=== PATIENT | male | born 1990 | race Caucasian/White ===

== ENCOUNTER 2021-05-10 03:50 | Emergency (ER) | payer BC, SELFPAY ==
[2021-05-10] VITALS (17 sets, daily range): BP systolic 103–140; BP diastolic 53–78; PULSE 54–95; RESP 19–26; TEMP 36.7; O2SAT 96–100
--- NOTE | ~2021-05-10 | CT_ITS ---
EXAMINATION: CT BRAIN W/O DATE: 05/10/2021 05:13 INDICATION: Seizure. TECHNIQUE: Computed tomography (CT) of the head was performed without intravenous contrast. The dose- length product was 605.33 mGy-cm. Automated exposure control and iterative reconstruction technique w ere employed. COMPARISON: No prior studies for comparison. FINDINGS: Normal brain parenchymal volume for age. Normal ac-white differentiation. No acute intrac ranial hemorrhage, infarction, mass or mass effect. No ventriculomegaly or midline shift. Midline sagittal images demonstrate a normal corpus callosum, c raniovertebral junction and sella turcica. Basilar cisterns are patent. Paranasal sinuses and mastoids are pneumatized. No depressed skull fractures. IMPRESSION: 1. No acute intracranial abnormality. Reviewed, dictated and finalized at location A. R OPERATOR
[2021-05-10 03:56] LABS: Glucose Point of Care 138 mg/dl (65-105)
--- NOTE | 2021-05-10 04:11 | ECG_ITS ---
Measurements Intervals [place] Rate: 80 P: 5 NH: 153 QRS: -30 QRSD: 117 T: 3 QT: 364 QTc: 422 Interpretive Statements SINUS RHYTHM INTRAVENTRICULAR CONDUCTION DELAY BORDERLINE R WAVE PROGRESSION, ANTERIOR LEADS MINIMAL Q WAVES- HIGH LATERAL LEADS BORDERLINE T WAVE ABNORMALITY- INFERIOR LEADS BASELINE ARTIFACT- II, III, AVR, AVF, V2-V6 BORDERLINE ECG Electronically Signed On 05-10-2021 7:29:35 DEVELOPMENT EDUCATOR by Ramirez Anton D.O.
--- NOTE | 2021-05-10 04:26 | ED.GENADULT ---
HPI - General Adult General Chief complaint: Seizure Stated complaint: possible seizure Time Seen by Provider: 05/10/21 04:10 History of Present Illness HPI narrative: Patient 30-year-old gentleman who presents the emergency department with chief complaint of seizure. Patient reports that he recently had a new onset seizure was started on Keppra and is scheduled to see neurology as an outpatient this week. The patient reports he has an MRI scheduled and an EEG scheduled. The patient's report that tonight he was sleeping with his CPAP started snoring heavily then had a seizure. The patient then went to sleep afterwards woke back up was somewhat confused and then she called EMS. Upon EMS arrival the patient was still slightly confused but is subsequently improved in his mental status and is back to normal. Patient states currently he has no complaint. Related Data Home Medications Medication Instructions Recorded Confirmed levetiracetam 500 mg PO BID 05/10/21 05/10/21 Allergies Allergy/AdvReac Type Severity Reaction Status Date / Time No Known Allergies Allergy Verified 05/10/21 03:58 Review of Systems Review of Systems: A 10 system review of systems was completed on the patient and is negative except for what is stated in the HPI. Nursing and ancillary documentation was reviewed. Exam Narrative: GENERAL: Well-appearing, well-nourished, and in no acute distress. HEAD: Normocephalic, atraumatic. EYES: PERRLA and EOMI. ENT: Nares clear, no rhinorrhea or epistaxis. Mucous membranes moist. NECK: Supple. CHEST: Clear to auscultation. No respiratory distress. HEART: Regular rate and rhythm. No murmur heard. Normal peripheral pulses. ABDOMEN: Soft, nontender, nondistended, normal active bowel sounds. EXTREMITIES: Normal range of motion. No edema. SKIN: Warm, dry, no rash. NEURO: No focal deficits. Alert and oriented x3. PSYCH: Normal mood and affect. Course Course Emergency Course: EKG sinus rhythm rate of [address] elevation or ST depression CT head showed no acute abnormalities Vital Signs Vital signs: Vital Signs Temperature 36.7 C 05/10/21 03:48 Pulse Rate 95 05/10/21 03:48 Respiratory Rate 20 05/10/21 03:48 Blood Pressure 129/75 05/10/21 03:48 Pulse Oximetry 100 05/10/21 03:48 Temperature 36.7 C 05/10/21 03:48 Pulse Rate 58 L 05/10/21 06:16 Respiratory Rate 23 H 05/10/21 06:16 Blood Pressure 127/70 05/10/21 06:16 Pulse Oximetry 97 05/10/21 06:16 Medical Decision Making Vital Signs Vital Signs: Vital Signs Temperature 36.7 C 05/10/21 03:48 Pulse Rate 95 05/10/21 03:48 Respiratory Rate 20 05/10/21 03:48 Blood Pressure 129/75 05/10/21 03:48 Pulse Oximetry 100 05/10/21 03:48 Temperature 36.7 C 05/10/21 03:48 Pulse Rate 58 L 05/10/21 06:16 Respiratory Rate 23 H 05/10/21 06:16 Blood Pressure 127/70 05/10/21 06:16 Pulse Oximetry 97 05/10/21 06:16 Lab Data Result diagrams: 05/10/21 05:52 05/10/21 05:52 Labs: Lab Results 05/10/21 05/10/21 05/10/21 Range/Units 03:54 04:18 04:18 WBC 8.8 (4.5-10.0) K/mm3 RBC 4.99 (4.6-6.20) M/mm3 Hgb 15.3 (14.0-18.0) g/dL Hct 44.2 (42.0-52.0) % MCV 88.6 (80-100) fl MCH 30.7 (26-34) pg MCHC 34.6 (32-36) g/dl RDW 12.5 (11.5-14.5) % Plt Count 266 (150-375) k/mm3 MPV 9.9 (7.4-10.4) fl Immature Gran % (Auto) 0.5 (0-0.5) % Neut % (Auto) 55.6 (45.5-73.1) % Lymph % (Auto) 33.7 (18.3-44.2) % [place] % (Auto) 6.3 (2.6-8.5) % Eos % (Auto) 3.1 (0-4.4) % Baso % (Auto) 0.8 (0.2-1.2) % Lymph # (Auto) 2.96 (0.9-3.2) K/mm3 [place] # (Auto) 0.6 (0.1-0.6) K/mm3 Eos # (Auto) 0.3 (0-0.3) K/mm3 Baso # (Auto) 0.1 (0.0-0.1) K/mm3 Abs Immat Gran (auto) 0.04 H (0.00-0.031) K/mm3 Absolute Neuts (auto) 4.9 (1.3-6.7) K/mm3 Absolute Nucleated RBC 0.0 (0.0-0.012) K/mm3 Nucleated
[2021-05-10 04:41] LABS: Basophils Absolute Auto 0.1 K/mm3 (0.0-0.1); Basophils Percent Auto 0.8 % (0.2-1.2); Eosinophils Absolute Auto 0.3 K/mm3 (0-0.3); Eosinophils Percent Auto 3.1 % (0-4.4); Hematocrit 44.2 % (42.0-52.0); Hemoglobin 15.3 g/dL (14.0-18.0); Immature Granulocyte Absolute 0.04 K/mm3 (0.00-0.031); Immature Granulocyte Percent A 0.5 % (0-0.5); Lymphocytes Absolute Auto 2.96 K/mm3 (0.9-3.2); Lymphocytes Percent Auto 33.7 % (18.3-44.2); Mean Corpuscular HGB Conc 34.6 g/dl (32-36); Mean Corpuscular Hemoglobin 30.7 pg (26-34); Mean Corpuscular Volume 88.6 fl (80-100); Mean Platelet Volume 9.9 fl (7.4-10.4); Monocytes Absolute Auto 0.6 K/mm3 (0.1-0.6); Monocytes Percent Auto 6.3 % (2.6-8.5); Neutrophils Absolute Auto 4.9 K/mm3 (1.3-6.7); Neutrophils Percent Auto 55.6 % (45.5-73.1); Platelet Count Result 266 k/mm3 (150-375); Red Blood Count 4.99 M/mm3 (4.6-6.20); Red Cell Distribution Width 12.5 % (11.5-14.5); White Blood Count 8.8 K/mm3 (4.5-10.0)
[2021-05-10 05:01] LABS: Alanine Aminotransferase 42 U/L (4-50); Albumin Level 4.2 g/dL (3.5-5.1); Alkaline Phosphatase 97 U/L (38-126); Anion Gap 10 mmol/L (8-16); Aspartate Amino Transferase 27 U/L (17-59); Bilirubin,Total 0.6 mg/dL (0.2-1.3); Blood Urea Nitrogen 12 mg/dL (9-20); Calcium 9.1 mg/dL (8.4-10.2); Carbon Dioxide 26 mmol/L (22-30); Chloride 103 mmol/L (98-107); Estimated CRCL calculation 156 ml/min; Estimated Glomerular Filt Rate > 60; Glucose 153 mg/dL (65-110); Potassium 3.5 mmol/L (3.4-5.0); Sodium 139 mmol/L (137-145)
--- NOTE | 2021-05-10 05:35 | PC.NURSE ---
correction: pt takes keppra 500 mg PO bid.
[2021-05-10 05:49] LABS: Magnesium 2.1 mg/dL (1.6-2.3)
--- NOTE | 2021-05-10 06:01 | PC.NURSE ---
Seizure precautions in place since arrival. pt resting on stretcher c eyes closed. at bedside. will continue to monitor.
[2021-05-10 06:15] LABS: Alanine Aminotransferase 42 U/L (4-50); Albumin Level 4.2 g/dL (3.5-5.1); Alkaline Phosphatase 96 U/L (38-126); Anion Gap -7 mmol/L (8-16); Aspartate Amino Transferase 30 U/L (17-59); Basophils Absolute Auto 0.1 K/mm3 (0.0-0.1); Basophils Percent Auto 0.6 % (0.2-1.2); Bilirubin,Total 0.6 mg/dL (0.2-1.3); Blood Urea Nitrogen 12 mg/dL (9-20); Calcium 9.1 mg/dL (8.4-10.2); Carbon Dioxide 27 mmol/L (22-30); Chloride 103 mmol/L (98-107); Eosinophils Absolute Auto 0.2 K/mm3 (0-0.3); Eosinophils Percent Auto 1.3 % (0-4.4); Estimated CRCL calculation 156 ml/min; Estimated Glomerular Filt Rate > 60; Glucose 148 mg/dL (65-110); Hematocrit 44.3 % (42.0-52.0); Hemoglobin 15.4 g/dL (14.0-18.0); Immature Granulocyte Absolute 0.06 K/mm3 (0.00-0.031); Immature Granulocyte Percent A 0.4 % (0-0.5); Lactic Acid Reflex 1.2 mmol/L (0.7-2.1); Lymphocytes Absolute Auto 2.17 K/mm3 (0.9-3.2); Mean Corpuscular HGB Conc 34.8 g/dl (32-36); Mean Corpuscular Hemoglobin 30.8 pg (26-34); Mean Corpuscular Volume 88.6 fl (80-100); Mean Platelet Volume 9.6 fl (7.4-10.4); Monocytes Percent Auto 7.7 % (2.6-8.5); Platelet Count Result 266 k/mm3 (150-375); Potassium 3.3 mmol/L (3.4-5.0); Red Cell Distribution Width 12.5 % (11.5-14.5); Sodium 123 mmol/L (137-145); White Blood Count 13.5 K/mm3 (4.5-10.0)
[2021-05-10 06:20] LABS: Add Urine Microscopic? YES; Appearance Urine Clear (Clear); Bilirubin Urine Negative (Negative); Blood Urine Negative (Negative); Color Urine Yellow (Yellow); Glucose Urine UA 1+ mg/dL (Negative); Ketones Urine Negative (Negative); Leukocyte Esterase Ur Negative LEU/UL (Negative); Mucus Urine Rare /lpf; Nitrate Urine Negative (Negative); Protein Urine Negative (Negative); RBC Urine 0-2 /hpf (0-2); Specific Grav Ur 1.021 (1.001-1.035); Urobilinogen Urine Negative mg/dL (<2.0); WBC Urine 0-3 /hpf
== END 2021-05-10 07:12 | disposition home or self-care (01) ==
PROVIDERS: Emergency Provider Emergency Medicine; PCP Student in an Organized Health Care Education/Training Program
DX: G40.909 Epilepsy, unspecified, not intractable, without status epilepticus (principal); R94.31 Abnormal electrocardiogram [ECG] [EKG]; I45.9 Conduction disorder, unspecified
CPT/HCPCS: 36415; 70450; 80053; 81001; 82948; 83605; 83735; 85025; 93005; 99284

== ENCOUNTER 2023-08-06 09:47 | Emergency (ER) | payer BC, SELFPAY ==
[2023-08-06 10:03] VITALS: BP 122/62; PULSE 86; RESP 18; TEMP 36.9; O2SAT 97
--- NOTE | 2023-08-06 10:24 | ED.URI ---
HPI - URI/Sore Throat General Chief Complaint: Upper Respiratory Infection Stated Complaint: sorethroat Time Seen by Provider: 08/06/23 09:54 Source: patient Mode of arrival: ambulatory Limitations: no limitations History of Present Illness HPI Narrative: 32-year-old male presents to [facility] with complaints of sore throat and body aches since yesterday. Patient's son recently tested positive for strep throat. Patient reports that he had his tonsils removed as a child. Patient has been taking [id number] Motrin and Tylenol with minimal relief. Patient denies cough, congestion, runny nose, fever, chills, nausea vomiting or diarrhea. MD elicited complaint: sore throat and other (Body aches) Onset (ago): day(s) (1) Severity: mild Able to tolerate fluids by mouth: Yes Exacerbating factors: swallowing Context: sick contacts (Son) Treatments prior to arrival: acetaminophen and ibuprofen Related Data Home Medications Medication Instructions Recorded Confirmed levetiracetam 500 mg tablet 500 mg PO BID 05/10/21 05/10/21 lamotrigine 25 mg tablet mg 08/06/23 Allergies Allergy/AdvReac Type Severity Reaction Status Date / Time No Known Allergies Allergy Verified 08/06/23 10:04 Review of Systems Constitutional: Constitutional: Denies chills, Denies fatigue, Denies fever(s) and Denies weakness Comments: Body aches ENT: Denies nasal congestion and Reports sore throat Respiratory: Respiratory: Denies cough, Denies dyspnea and Denies wheezing Gastrointestinal: Gastrointestinal: Denies diarrhea, Denies nausea and Denies vomiting Integumentary/Breasts: Skin/Breast: Denies rash Neurologic: Denies dizziness, Denies syncope and Denies headache(s) Allergic/Immunologic: Allergic/Immunologic: Denies throat swelling, Denies tongue swelling and Denies wheezing PMFSH Comments At time of signature, I agree with nursing past medical, surgical, social and family history. There is no relevant family history pertinent to the presenting complaint. Exam Const: General: healthy appearing and no acute distress Nutritional Appearance: well nourished Orientation/consciousness: patient oriented x3 Limitations: no limitations HENMT: Head: normal to inspection Ears: external ears normal and TM's normal bilaterally Mouth: Yes Normal oral and palatal mucosa present and Yes moist mucous membranes Teeth and gingiva: dentition normal Throat: uvula midline Other: Moderate erythema noted to oropharynx. Tonsils are absent Eyes: Conjunctivae: conjunctivae normal Neck: Neck: normal visual inspection Resp: Effort & Inspection: normal respiratory effort and not labored Auscultation: clear to auscultation bilaterally, no crackles, no rales and no rhonchi Cardio: Rate: regular rate Rhythm: regular rhythm Heart sounds: no murmurs Skin: General skin exam: normal color Rashes: no rashes Neuro: General: patient oriented x3 and moves all extremities Speech: normal speech Psych: Mental Status: mental status grossly normal Affect: normal affect Attitude: cooperative Course Course Level of Care: Express Care Visit Vital Signs Vital signs: Vital Signs Temperature 36.9 C 08/06/23 10:03 Pulse Rate 86 08/06/23 10:03 Respiratory Rate 18 08/06/23 10:03 Blood Pressure 122/62 08/06/23 10:03 Pulse Oximetry 97 08/06/23 10:03 Oxygen Delivery Room Air 08/06/23 10:03 Temperature 36.9 C 08/06/23 10:03 Pulse Rate 86 08/06/23 10:03 Respiratory Rate 18 08/06/23 10:03 Blood Pressure 122/62 08/06/23 10:03 Pulse Oximetry 97 08/06/23 10:03 Oxygen Delivery Room Air 08/06/23 10:03 MDM - URI/Sore Throat MDM Narrative Medical decision making narrative: Discussed positive strep results with patient. Patient agrees to alternate Motrin and Tylenol as needed. Patient agrees to dispose of toothbrush 24 hours after starting antibiotic. Educated patient to follow-up with primary care provid
== END 2023-08-06 10:30 | disposition home or self-care (01) ==
PROVIDERS: Emergency Provider Nurse Practitioner Family; PCP Student in an Organized Health Care Education/Training Program
DX: J02.0 Streptococcal pharyngitis (principal)
CPT/HCPCS: 87880; 99213; G0463